=== PATIENT | female | born 1975 | race Caucasian/White ===

== ENCOUNTER 2016-12-30 11:39 | Emergency (ER) | payer SELFPAY ==
[~2016-12-30] VITALS: Ht 154.9 cm; Wt 56.7 kg
[2016-12-30 11:43] VITALS: Ht 154.9 cm; Wt 56.7 kg
[2016-12-30] MEDS ORDERED: NICARDipine HCL 30 MG CAPSULE PO ONE (12:00)
[2016-12-30 12:43] VITALS: BP 133/71; PULSE 94; RESP 18
[2016-12-30] MEDS ORDERED: HYD25 PO (12:54)
--- NOTE | 2016-12-30 12:54 | RADRPT ---
PROCEDURE: US Pelvis CLINICAL INDICATION: Vaginal bleed. Pain. Lost IUD TECHNIQUE: Sonographic evaluation of the pelvis was performed utilizing both transabdominal and tr ansvaginal technique. Curved array transabdominal transducer technique as well as a high frequency endovaginal probe was utilized. Images were reviewed on the high-resolution PACS workstation. COMPARISON: No prior studies are available for comparison. FINDINGS: The uterus is normal in size, echogenicity, and morphology measuring 7.9 x 4.1 x 5.4 cm in dimension . The uterus is anteverted in normal position. IUD appears to be in appropriate position. The end ometrial stripe is not well visualized due to presence of the IUD. Both ovaries are not visualized. There are no adnexal masses. There is no significant free fluid in the pelvis. No other incidental abnormality is identified. IMPRESSION: 1. IUD is in appropriate position. 2. Nonvisualization of bilateral ovaries. No adnexal mass or free fluid. RPTAT: BB .Milton Guerra MD, Date Time Electronically viewed and signed by .Milton Guerra MD, on 12/30/2016 12:53 .O/
[2016-12-30] MEDS ORDERED: ACET325T33 PO (13:02)
--- NOTE | 2016-12-30 13:48 | ERD ---
ER Documentation Chief Complaint Date/Time DATE: 12/30/16 TIME: 13:46 Chief Complaint ASYMPTOMATIC,SEND FROM CLINIC FOR EVAL? HTN HPI Patient is a 41-year-old female with hypertension who presents for evaluation. The patient was sent by the primary doctor for evaluation. The patient was sent for high blood pressure and to check for an IUD with ultrasound. The patient has no symptoms. She has had the IUD for 7 years but they have been unable to find the IUD recently. ROS All systems reviewed and are negative except as per history of present illness. Medications Home Meds Active Scripts Acetaminophen* (Tylenol*) 325 Mg Tablet, 2 TAB PO Q8 Y for PAIN AND OR ELEVATED TEMP, #20 TAB Prov:RACHELE GARCIA MD 12/30/16 Hydrochlorothiazide* (Hydrochlorothiazide*) 25 Mg Tab, 25 MG PO DAILY, #30 TAB Prov:RACHELE GARCIA MD 12/30/16 Allergies Allergies: Coded Allergies: No Known Allergy (Unverified , 12/30/16) PMhx/Soc Medical and Surgical Hx: pt denies Medical Hx, pt denies Surgical Hx Hx Alcohol Use: No Hx Substance Use: No Hx Tobacco Use: No Smoking Status: Never smoker FmHx Family History: No diabetes Physical Exam Vitals Vital Signs Date Time Temp Pulse Resp B/P Pulse Ox O2 Delivery O2 Flow Rate FiO2 12/30/16 12:43 94 18 133/71 100 Room Air 12/30/16 11:43 98.1 68 18 210/95 99 Physical Exam Const: No acute distress Head: Atraumatic Eyes: Normal Conjunctiva ENT: Normal External Ears, Nose and Mouth. Neck: Full range of motion..~ No meningismus. Resp: Clear to auscultation bilaterally Cardio: Regular rate and rhythm, no murmurs Abd: Soft, non tender, non distended. Normal bowel sounds Skin: No petechiae or rashes Back: No midline or flank tenderness Ext: No cyanosis, or edema Neur: Awake and alert Psych: Normal Mood and Affect Results 24 hrs Current Medications Medications (Trade) Dose Ordered Sig/Clive Route PRN Reason Start Time Stop Time Status Last Admin Dose Admin Nicardipine HCl (Cardene) 30 mg ONCE ONCE PO 12/30/16 12:00 12/30/16 12:02 DC 12/30/16 12:05 Procedures/MDM Ultrasound shows IUD in the uterus per radiology. Patient is a 41-year-old female who presents with hypertension. The patient was given Cardene by mouth for hypertension. She will be given a prescription for hydrochlorothiazide. At this point I doubt acute hypertensive emergency. The patient will need to follow-up closely with a primary doctor. The patient had an ultrasound which shows a IUD in the uterus. She can follow-up with gynecology as needed for removal. She can return sooner for any worsening symptoms. I do not believe she requires further workup or admission to the hospital at this time. Departure Diagnosis: Primary Impression: Hypertension Hypertension type: essential hypertension Qualified Code: I10 - Essential hypertension Additional Impression: Encounter for laboratory test Condition: Fair Patient Instructions: Control: IUD (Intrauterine Device), High Blood Pressure (Hypertension) Referrals: Gynecology Additional Instructions: Llame al doctor MAVEENA y mer karen NONA PARA DENTRO DE 1-2 BRENNAN.Dgale a la secretaria que nosotros le instruimos hacer esta nona.Avise o llame si galeas condicin se empeora antes de la nona. Regresa aqui si peor o no mejor. RACHELE GARCIA MD Dec 30, 2016 13:48
== END 2016-12-30 13:00 | disposition home or self-care (01) ==
LOC: E/R 11:39
DX: I10 Essential (primary) hypertension (principal); R40.2142 Coma scale, eyes open, spontaneous, at arrival to emergency department; R40.2252 Coma scale, best verbal response, oriented, at arrival to emergency department; R40.2362 Coma scale, best motor response, obeys commands, at arrival to emergency department; Z00.00 Encounter for general adult medical examination without abnormal findings
CPT/HCPCS: 76830; 76856